=== PATIENT | male | born 1950 | race Caucasian/White ===

== ENCOUNTER 2016-12-23 06:56 | Day surgery (SDC) | payer MEDICARE, OTHER ==
[~2016-12-23 06:56] MED LIST: RINGER'S SOLUTION,LACTATED 1,000 ML IV PRN
[2016-12-23] MEDS ORDERED: RINGER'S SOLUTION,LACTATED 1,000 ML IV ONE (07:20)
[2016-12-23] MEDS ORDERED: RINGER'S SOLUTION,LACTATED 1,000 ML IV PRN (09:21)
[2016-12-23 10:21] VITALS: BP 128/74
--- NOTE | 2016-12-23 12:49 | OR ---
Operative Report - Dictated Report Narrative: OPERATIVE REPORT DATE OF OPERATION: 12/23/2016 PREOPERATIVE DIAGNOSIS: History of colon polyp. Diverticulosis POSTOPERATIVE DIAGNOSIS: 3mm rectal polyp and 3 mm polyp at the hepatic flexure (pathology pending). Hyperplastic sigmoid polyp (destroyed in place). Significant sigmoid diverticulosis OPERATION: Colonoscopy with hot biopsy forceps polypectomy 3 SURGEON: Alexis Hercules MD ANESTHESIA: MAC Sly Colon CARDIAC MONITOR INDICATIONS FOR PROCEDURE: The patient is a 66-year-old male referred by Dr Salinas. He had a tubular adenoma and a hyperplastic polyp removed in 2008. He has diverticulosis. There is no family history of colon cancer. The patient does have loose frequent stools. FINDINGS: 3 mm adenomatous appearing polyps in the rectum and at the hepatic flexure. Hyperplastic-appearing polyp in the sigmoid colon. Moderate to severe sigmoid diverticulosis NARRATIVE OF PROCEDURE: The patient was identified in the holding area, and prior to the administration of anesthetic, a multidisciplinary timeout was observed. With the patient in the left lateral position and after the administration of intravenous sedation, the perineum was inspected. There was no evidence of pilonidal disease or skin breakdown. The external appearance of the anus was normal. Sphincter tone was good. The flexible fiberoptic colonoscope was inserted into the rectum which was insufflated with air. The rectal mucosa and submucosal vascular pattern appeared normal, the prep was seen to be complete. There was a 3 mm area of polypoid change in the rectum which was biopsied and then thoroughly destroyed with electrocautery. The site was seen to be completely hemostatic. At about 15 cm there was a classic hyperplastic-appearing polyp which was destroyed in place with electrocautery. The scope was advanced through the sigmoid colon, which contained numerous large diverticular openings. There was no inflammation however several were impacted with stool. The scope was advanced up the descending colon, and around the splenic flexure where the triangular haustral architecture of the transverse colon was seen. The scope was advanced across the transverse colon to the hepatic flexure where a 3 mm area of polypoid change was identified. This was biopsied and then thoroughly destroyed with electrocautery. The site was seen to be complete and hemostatic. The scope was advanced around the hepatic flexure to the cecum, where the confluence of tenia and the ileocecal valve were identified. The mucosa at this level appeared normal. The scope was then slowly withdrawn in a circular fashion so that all aspects of colonic mucosa were inspected. The proximal colon was capacious and character however the colon was relatively normal in course. The haustral architecture appeared well preserved throughout with no evidence of external compression. The mucosa and submucosal vascular pattern appeared normal, specifically there was no gross evidence to suggest colitis or inflammatory bowel disease and no AV malformations were seen. The diverticulosis was moderate to severe in degree and confined primarily to the sigmoid colon. No additional polyps were encountered. The scope was gradually withdrawn to the level of the rectum. As much insufflated air as possible was removed. The scope was withdrawn from the patient and the procedure terminated. The patient tolerated the anesthetic and procedure well without complication and was transferred back to the ambulatory surgery area awake and in stable condition. The patient remained stable throughout a period of postoperative observation. He denied abdominal discomfort, was able to tolerate by mouth intake, and was up without assistance. I shared the operative findings with the patient and he was given copies of the photographs which appear in the medical record. He was discharged home with instructions not to engage in hazardous activity today, but may resume normal activity tomorrow, and advance diet as tolerated. He is to continue those medications as listed in the history and physical exam. I made arrangements to contact him with the biopsy reports and will make additional recommendations for treatment and follow-up based upon those results. A pamphlet on diverticular disease was reviewed with him and given to him. A trial of Benefiber or equivalent with a high fiber diet was encouraged. Reviewed and electronically signed
== END 2016-12-23 06:57 | disposition home or self-care (01) ==
LOC: AMB 06:56
PROVIDERS: ATTEND Surgery
PROC: 0DBE8ZZ Excision of Large Intestine, Via Natural or Artificial Opening Endoscopic (ICD-10-PCS; 2016-12-23)
PROC: 0DBL8ZX Excision of Transverse Colon, Via Natural or Artificial Opening Endoscopic, Diagnostic (ICD-10-PCS; 2016-12-23)
PROC: 0DBP8ZX Excision of Rectum, Via Natural or Artificial Opening Endoscopic, Diagnostic (ICD-10-PCS; principal; 2016-12-23 08:00)
DX: Z12.11 Encounter for screening for malignant neoplasm of colon (principal); D12.3 Benign neoplasm of transverse colon; K63.5 Polyp of colon; D12.8 Benign neoplasm of rectum; K57.30 Diverticulosis of large intestine without perforation or abscess without bleeding; I10 Essential (primary) hypertension; J44.9 Chronic obstructive pulmonary disease, unspecified; Z87.891 Personal history of nicotine dependence; Z68.32 Body mass index [BMI] 32.0-32.9, adult